=== PATIENT | female | born 1985 | race Two or more races ===

== ENCOUNTER 2021-05-20 07:00 | Inpatient (IN) | payer BC ==
[2021-05-20 08:19] LABS: PH,URINE 5.5 (5.0-8.0); URINE APPEARANCE CLEAR; URINE BILIRUBIN NEGATIVE (NEGATIVE); URINE COLOR YELLOW; URINE GLUCOSE (UA) NEGATIVE (NEGATIVE); URINE KETONE NEGATIVE (NEGATIVE); URINE LEUK ESTERASE NEGATIVE (NEGATIVE); URINE NITRITE NEGATIVE (NEGATIVE); URINE PROTEIN TRACE (NEGATIVE); URINE UROBILINOGEN 0.2 mg/dL (0.2-1.0)
[2021-05-20] MEDS ORDERED: DEXTROSE 5%-LACTATED RINGERS 1,000 ML IV SCH (08:50)
[2021-05-20] MEDS ORDERED: BETAMET ACET/BETAMET NA PH 30 MG/5 ML VIAL ONE (09:15)
[2021-05-20] MEDS ORDERED: AMPICILLIN SODIUM 2 GM VIAL ONE (09:18)
[2021-05-20] MEDS ORDERED: OXYTOCIN 20 UNITS in 0.9% NS 20 UNIT/1,000 ML INFUS.BAG IV ONE (09:49)
[2021-05-20 09:57] LABS: BASO % 0.5 % (0-2.0); EOS % 0.2 % (0-4.5); HEMATOCRIT 32.2 % (32.4-45.2); HEMOGLOBIN 10.6 GM/dL (10.7-15.3); MCH 25.3 pg (25.7-33.7); MCHC 32.8 g/dl (32.0-36.0); MEAN CELL VOLUME 76.9 fl (80-96); MEAN PLT VOLUME 7.6 fl (7.5-11.1); MONO % 3.3 % (3.8-10.2); PLATELET COUNT 137 10^3/uL (134-434); RBC 4.19 M/mm3 (3.60-5.2); RDW 18.1 % (11.6-15.6); WHITE BLOOD COUNT 10.8 K/mm3 (4.0-10.0)
[2021-05-20 10:04] LABS: ACTIVATED PTT 19.6 SECONDS (25.2-36.5); INR 0.83 (0.83-1.09); PROTHROMBIN TIME (PATIENT) 9.5 SEC (9.7-13.0)
[2021-05-20 10:09] LABS: CORD BASE EXCESS -5.1 mmol/L (0-2); CORD HCO3 20.5 mmHg (20-29); CORD pH 7.327 (7.14-7.44)
[2021-05-20 10:12] LABS: CORD BASE EXCESS -3.1 mmol/L (0-2); CORD HCO3 24.9 mmHg (20-29); CORD PCO2 55.4 mmHg (30-78); CORD pH 7.271 (7.14-7.44)
[2021-05-20 10:22] LABS: CALCIUM 8.6 mg/dL (8.5-10.1)
[2021-05-20 10:23] LABS: BLOOD UREA NITROGEN 9.4 mg/dL (7-18)
[2021-05-20 10:26] LABS: CREATININE 0.7 mg/dL (0.55-1.3)
[2021-05-20] MEDS ORDERED: BENZOCAINE 20% 57 GM BOTTLE TP PRN (10:28)
[2021-05-20] MEDS ORDERED: ACETAMINOPHEN 325 MG TABLET (FP) PO PRN (10:28)
[2021-05-20] MEDS ORDERED: WITCH HAZEL 50% (TUCKS) 40 PAD/JAR PAD TP PRN (10:28)
[2021-05-20] MEDS ORDERED: IBUPROFEN 600 MG TABLET (FP) PO PRN (10:28)
[2021-05-20] MEDS ORDERED: METHYLERGONOVINE MALEATE 0.2 MG/1 ML AMP IM PRN (10:28)
[2021-05-20] MEDS ORDERED: BENZOCAINE 28 GM HEMORRHOIDAL OINTMENT TP PRN (10:28)
[2021-05-20] MEDS ORDERED: BISACODYL 10 MG SUPP.RECT RC PRN (10:28)
[2021-05-20] MEDS ORDERED: OXYTOCIN 20 UNITS in 0.9% NS 20 UNIT/1,000 ML INFUS.BAG IV SCH (10:30)
[2021-05-20] MEDS ORDERED: AMPICILLIN - 2 GM in SODIUM CHLORIDE 100 ML IVPB ONE (10:34)
[2021-05-20] MEDS ORDERED: BETAMET ACET/BETAMET NA PH 30 MG/5 ML VIAL IM ONE (10:36)
[2021-05-20 10:49] VITALS: BMI 31.6
[2021-05-20 11:15] LABS: HIV INTERPRETATION NEGATIVE (NEGATIVE)
[2021-05-21] MEDS: LEVOTHYROXINE NA 50 MCG TABLET (FP) PO SCH (06:09)
[2021-05-21 08:23] LABS: BASO % 0.2 % (0-2.0); EOS % 0.1 % (0-4.5); HEMATOCRIT 32.1 % (32.4-45.2); HEMOGLOBIN 10.6 GM/dL (10.7-15.3); LYMPH % 9.6 % (8-40); MCH 25.4 pg (25.7-33.7); MCHC 33.2 g/dl (32.0-36.0); MEAN CELL VOLUME 76.6 fl (80-96); MEAN PLT VOLUME 6.9 fl (7.5-11.1); MONO % 6.1 % (3.8-10.2); PLATELET COUNT 219 10^3/uL (134-434); RBC 4.18 M/mm3 (3.60-5.2); RDW 18.7 % (11.6-15.6); WHITE BLOOD COUNT 11.9 K/mm3 (4.0-10.0)
[2021-05-21] MEDS ORDERED: DIPHTH,PERTUSS(ACELL),TET 0.5 ML DISP.SYRIN IM ONE (10:00)
[2021-05-21] MEDS ORDERED: SENNOSIDES/DOCUSATE COMBO (SENNA PLUS) TABLET (UD) PO PRN (22:00)
[2021-05-22] MEDS: LEVOTHYROXINE NA 50 MCG TABLET (FP) PO SCH (06:09)
[2021-05-22 07:24] VITALS: BP 105/69; PULSE 69; TEMP 98.3
== END 2021-05-22 11:45 | disposition home or self-care (01) | DRG 807 ==
LOC: JDEL 07:00 → JLDR 09:00 → J3W 12:35
PROVIDERS: ADMIT Obstetrics & Gynecology; ATTEND Obstetrics & Gynecology
PROC: 10E0XZZ Delivery of Products of Conception, External Approach (ICD-10-PCS; principal; 2021-05-20)
DX: O60.14X0 Preterm labor third trimester with preterm delivery third trimester, not applicable or unspecified (principal); Z37.0 Single live birth; O99.013 Anemia complicating pregnancy, third trimester; D64.9 Anemia, unspecified; O99.284 Endocrine, nutritional and metabolic diseases complicating childbirth; E03.9 Hypothyroidism, unspecified; Z3A.30 30 weeks gestation of pregnancy
CPT/HCPCS: 36415; 36600; 59409; 76801-TC; 80048; 81003; 82803; 85025; 85610; 85730; 86780; 86850; 86900; 86901; 87389; 88307-TC; 90715; 96372; C9803; U0003; U0005